=== PATIENT | female | born 1945 | race Caucasian/White ===

== ENCOUNTER → 2019-04-08 16:18 | Outpatient (CLI) | payer MEDICARE, SELFPAY ==
--- NOTE | 2019-04-08 16:25 | DI.RAD.S_ITS ---
PROCEDURE: XR LUMBAR SPINE MIN 4V INDICATIONS: Low back pain TECHNIQUE: 5 views of the lumbar spine were acquired. COMPARISON: None. FINDINGS: Bones: No fracture or focal osseous destruction. Multilevel degenerative endplate sclerosis and spurring. Diffuse facet arthropathy. Mild narrowing of the L4-L5 disc space. Grade 1 anterolisthesis of L4 on L5. Partially visualized levocurvature of the thoracolumbar junction. Soft tissues: Overlying bowel gas pattern is normal. No suspicious soft tissue calcifications. Oblique images: No pars defects. IMPRESSION: Mild L4-L5 disc degeneration. Diffuse facet arthropathy. Grade 1 anterolisthesis of L4 on L5 Thoracolumbar levocurvature. Dictated by: Farshad Conway M.D. on 04/08/2019 at 17:16 Approved by: Farshad Conway M.D. on 04/08/2019 at 17:17
== END ==
PROVIDERS: PCP Family Medicine; Visit Provider Family Medicine
DX: M54.5 Low back pain (principal); M47.27 Other spondylosis with radiculopathy, lumbosacral region; M51.16 Intervertebral disc disorders with radiculopathy, lumbar region; M43.16 Spondylolisthesis, lumbar region; M41.50 Other secondary scoliosis, site unspecified
CPT/HCPCS: 72110; 99213

== ENCOUNTER → 2019-04-19 11:23 | Outpatient (CLI) | payer MEDICARE, SELFPAY ==
--- NOTE | 2019-04-19 11:25 | DI.MRI.S_ITS ---
PROCEDURE: MR LUMBAR SPINE WO CON INDICATIONS: Low back pain TECHNIQUE: Noncontrast sagittal T1 spin echo and T2 fast echo, sagittal STIR, axial T1 and T2 fast spin echo through the lumbar spine. In cases with scoliosis, additional coronal T2 fast spin echo may be performed. COMPARISON: [facility], CR, XR LUMBAR SPINE MIN 4V, 04/08/2019, 16:28. FINDINGS: Image quality: Excellent. Alignment and Curvature: S-shaped scoliotic curvature is seen. Mild grade 1 anterolisthesis is seen at the L4-L5 level. Bone Marrow: Marrow is of normal overall signal. Scattered foci are seen, which are hyperintense on T1-weighted and T2-weighted imaging, which are most consistent with benign vertebral body hemangiomas. No acute vertebral body compression fractures. Spinal Cord: Conus medullaris terminates at the L1 level. Visualized cord demonstrates normal signal and size. Paraspinous Soft Tissues: No paravertebral masses. T12-L1: Mild loss of disc height is seen. Loss of disc signal is seen. No significant neural foraminal or central canal narrowing can be seen. L1-L2: No significant abnormality is seen. L2-L3: The disc height is well-preserved. Loss of disc signal is seen at this level. Minimal disc bulge is seen. There is minimal to mild left-sided and no right-sided neural foraminal narrowing seen. No central narrowing is seen. L3-L4: The disc height is well-preserved. Loss of disc signal is seen at this level. Moderate generalized disc bulge is seen. Mild facet joint hypertrophy is seen. There is mild right-sided and mild to moderate left-sided neural foraminal narrowing seen. [id number] central canal narrowing is seen. L4-L5: The disc height is well-preserved. Loss of disc signal is seen at this level. Mild to moderate disc bulge is seen, which is eccentric to the right. Moderate to prominent facet hypertrophy is seen. There is moderate bilateral neural foraminal narrowing seen, left worse than right. Moderate to severe central canal narrowing is seen, as on series 6 image 24. L5-S1: The disc height and disc signal are relatively well-preserved. No significant neural foraminal or central canal narrowing can be seen. 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 IMPRESSION: Lumbar spine degenerative changes are seen, which are most prominent at the L4-L5 level. Dictated by: Silas Ascencio M.D. on 04/19/2019 at 13:05 Approved by: Silas Ascencio M.D. on 04/19/2019 at 13:10
== END ==
PROVIDERS: PCP Family Medicine; Visit Provider Physical Medicine & Rehabilitation
DX: M54.5 Low back pain (principal); M47.26 Other spondylosis with radiculopathy, lumbar region
CPT/HCPCS: 72148

== ENCOUNTER 2019-05-16 10:41 | Outpatient (CLI) | payer MEDICARE, SELFPAY ==
--- NOTE | 2019-05-16 10:42 | DI.RAD.S_ITS ---
PROCEDURE: PAIN L/S FACET INJ/BLK 1ST PRASAD COMPARISON: None. INDICATIONS: SPONDYLOSIS FINDINGS: 6 intraoperative fluoroscopy images demonstrate needle placement at L3, L4 and L5 facet joints bilaterally. IMPRESSION: Fluoroscopy for pain management. Dictated by: Lacie Valentin M.D. on 05/16/2019 at 14:22 Approved by: Lacie Valentin M.D. on 05/16/2019 at 14:23
[2019-05-16 11:35] VITALS: BP 137/71; PULSE 63; RESP 16; TEMP 36.1; O2SAT 97
[2019-05-16 11:58] VITALS: BP 138/78; PULSE 93; RESP 16; O2SAT 97
[2019-05-16] MEDS: MIDAZOLAM 5 MG/5 ML VIAL IV (12:00)
[2019-05-16] MEDS: fentaNYL 100 MCG/2 ML INJ 50 MCG IV (12:00)
[2019-05-16] MEDS: IOPAMIDOL 15 ML VIAL 3 ML INJ (12:03)
[2019-05-16 12:05] VITALS: BP 116/68; PULSE 79; RESP 16; O2SAT 95
[2019-05-16] MEDS: BETAMETHASONE 30 MG/5 ML MDV 12 MG INJ (12:08)
[2019-05-16] MEDS: LIDOCAINE 1% 20 ML INJ 10 ML INJ (12:08)
[2019-05-16] MEDS: BUPIVACAINE 0.5% (PF) VIAL 2 ML INJ (12:08)
[2019-05-16 12:10] VITALS: BP 121/75; PULSE 76; RESP 16; O2SAT 96
--- NOTE | 2019-05-16 12:14 | PC.NURSE ---
Pt tolerated procedure well. Able to get pt off the table with standby assist. Transferred pt via wheelchair to pre procedure room. Resumed care upon arrival 1222 to pre procedure.
--- NOTE | 2019-05-16 12:21 | P.PCN_ITS ---
Procedures Date/Time Date of procedure: 05/16/19 Time of procedure: 12:20 General Procedure description: PREOP DIAGNOSIS 1. FACET ARTHROPATHY 2. AXIAL LBP 3. MULTILEVEL DDD POST OP DIAGNOSIS 1. FACET ARTHROPATHY 2. AXIAL LBP 3. MULTILEVEL DDD PROCEDURES 1. FLUORSCOPICALLY GUIDED CONTRAST CONTROLLED FACET JOINT INJECTIONS BILATERAL L3/4, L4/5 PHYSICIAN: Mason Padilla DO INDICATIONS: Bri is referred by Dr. Hurt for treatment of Axial LBP FINDINGS Multilevel Facet Arthropathy with Clinically significant axial LBP DESCRIPTION OF PROCEDURE Fluoroscopically guided, contrast-controlled bilateral L3/4, L4/5 facet joint injections. Following review of allergy and review of potential side effects and complications, including, but not necessarily limited to, infection, allergic reaction, local tissue breakdown, stroke, temporary or permanent nerve injury, paralysis, and possible , the patient indicated that the patient understood and agreed to proceed. An informed consent document was signed by the patient, witnessed by a nurse, and placed in the patient's chart. Additionally, other treatment options including medications, modalities, and physical therapy were reviewed with the patient. After review of previous anaesthesic history and IV conscious sedation the patient was deemed safe to proceed with todays procedure with IV conscious sedation as ASA class II designation. Safety time-out was performed to confirm patient ID, procedure to be performed and site of procedure. IV sedation was accomplished with a combination of 2mg of Versed and 50mcg of Fentanyl was administered by the RN after DO order, titrated to patient comfort during the course of the procedure while the patient remained responsive to all verbal commands. In the prone position, following sterile prep and drape of the lumbar region, the posterior aspect of the L3/4, L4/5 facet joints were identified fluoroscopically. The skin was anesthetized via a 25-gauge 1.5-inch needle with 1% lidocaine solution into the corresponding facet joints. At this point, a 22- gauge 3.5-inch spinal needle was atraumatically introduced and advanced under fluoroscopic guidance into the corresponding facet joints. Following negative a spiration, injections of approximately 0.2-cc of Isovue 200 confirmed interarticular placement without vascular uptake. The identical procedure was then performed at the L3/4, L4/5 facet joints on the left. Radiological data, including multiple fluoroscopic views of the lumbosacral spine, reveal a spinal needle at the L3/4, L4/5 facet joints bilaterally. Subsequent views show flow of contrast material both superiorly and inferiorly within the joint space without vascular or intrathecal uptake. At this point, a total of 0.5 cc including a mixture of 0.25 cc Marcaine and 0.25 cc betamethasone was injected without complication into each of the corresponding facet joints. The patient tolerated the procedure well without signs or symptoms of complications prior to transfer to the recovery area continued monitoring without incident. The patient was then transferred to the recovery area where they were observed for an appropriate period of time after the injection. The patient reported a VAS score of 7 prior to the procedure and a post-procedure VAS of 0. Total Fluoroscopy Time: 20.3 seconds Total Conscious Sedation Time: 24min POST OP INSTRUCTIONS The patient was provided a Pain Log to continue to record their response to the target-specific procedure prior to follow-up visit with their referring physician. Additionally, specific post-injection care instructions and a contact number to our office were provided if concerns arise regarding possible complications associated with the procedure are suspected. Mason Padilla DO Complications: none
[2019-05-16 12:22] VITALS: BP 140/79; PULSE 74; RESP 16; O2SAT 95
[2019-05-16 12:27] VITALS: BP 128/84; PULSE 74; RESP 16; O2SAT 96
== END 2019-05-16 12:56 | disposition home or self-care (01) ==
PROVIDERS: PCP Family Medicine; Visit Provider Physical Medicine & Rehabilitation
DX: M47.816 Spondylosis without myelopathy or radiculopathy, lumbar region (principal); M54.5 Low back pain; M51.36 Other intervertebral disc degeneration, lumbar region
CPT/HCPCS: 64493; 64494; 99152; J0702; J2250; J3010

== ENCOUNTER 2019-08-08 12:40 | Outpatient (CLI) | payer MEDICARE, SELFPAY ==
[2019-08-08] VITALS (10 sets, daily range): BP systolic 137–163; BP diastolic 64–96; PULSE 74–87; RESP 16–18; TEMP 36.1; O2SAT 94–100
--- NOTE | 2019-08-08 12:42 | DI.RAD.S_ITS ---
PROCEDURE: PAIN L/S FACET INJ/BLK 1ST PRASAD COMPARISON: None. INDICATIONS: SPONDYLOSIS FINDINGS: 6 intraoperative fluoroscopy images demonstrate needle placement at L3, L4 and L5 bilaterally. IMPRESSION: Fluoroscopy for pain management. Dictated by: Lacie Valentin M.D. on 08/08/2019 at 16:00 Approved by: Lacie Valentin M.D. on 08/08/2019 at 16:01
[2019-08-08] MEDS: fentaNYL 100 MCG/2 ML INJ 50 MCG IV (14:16)
[2019-08-08] MEDS: BETAMETHASONE 30 MG/5 ML MDV 12 MG INJ (14:23)
[2019-08-08] MEDS: IOPAMIDOL 15 ML VIAL 3 ML INJ (14:24)
[2019-08-08] MEDS: LIDOCAINE 1% 20 ML 10 ML INJ (14:24)
[2019-08-08] MEDS: BUPIVACAINE 0.5% (PF) VIAL 2 ML INJ (14:24)
[2019-08-08] MEDS: MIDAZOLAM 5 MG/5 ML VIAL IV (14:28)
--- NOTE | 2019-08-08 14:31 | PC.NURSE ---
ASSISTING PT OFF TABLE AND TRANSPORTING TO POST PROC AREA IN STABLE CONDITION. PT RN CARE PASSED ON TO SALVADOR Flores RN.
--- NOTE | 2019-08-08 14:36 | P.PCN_ITS ---
Procedures Date/Time Date of procedure: 08/08/19 Time of procedure: 14:36 General Procedure description: POST OP DIAGNOSIS 1. FACET ARTHROPATHY PROCEDURES 1. BILATERAL L3, L4 AND L5 MB BLOCKS PHYSICIAN: DO DONA Martin is referred by Dr. Hurt for treatment of Bilateral Axial LBP. DESCRIPTION OF PROCEDURE Fluoroscopically guided, contrast-controlled bilateral L3, L4 and L5 medial branch blocks with 0.5cc of 0.5% Marcaine. Following review of allergy and review of potential side effects and complications, including, but not necessarily limited to, infection, allergic reaction, local tissue breakdown, nerve injury, paralysis, stroke and possible , the patient indicated that the patient understood and agreed to proceed. An informed consent document was signed by the patient, witnessed by a nurse, and placed in the patient's chart. After review of previous anaesthesic history and IV conscious sedation the patient was deemed safe to proceed with todays procedure with IV conscious sedation as ASA class II designation. Safety time-out was performed to confirm patient ID, procedure to be performed and site of procedure. IV sedation was accomplished with a combination of 4mg of Versed and 50mcg of Fentantyl was administered by the RN after DO order, titrated to patient comfort during the course of the procedure while the patient remained responsive to all verbal commands In the prone position, following sterile prep and drape of the lumbar region, the right L3, L4 and L5 anatomical location of the medial branch of the dorsal ramus was identified fluoroscopically. Subsequently an anesthetic skin wheal using 1% lidocaine solution was initiated at each of the anatomical spots. Subsequently then a 22-gauge 3.5-inch spinal needle was atraumatically introduced and advanced under fluoroscopic guidance at each of the corresponding sites at the right L3, L4 and L5 MB. After negative aspiration, 0.2 cc of Isovue 200 was injected, confirming placement without vascular or intrathecal uptake. Subsequently then 0.5 cc of 0.5% Marcaine solution was injected at each of the corresponding sites at the right L3, L4 and L5 medial branch locations. The identical procedure was replicated on the left. The patient tolerated the procedure well without signs or symptoms of complications. The patient tolerated the procedure well without signs or symptoms of complications prior to transfer to the recovery area continued monitoring without incident. Post-procedure, the patient was monitored initiating provocative activities to measure the amount of relief from block of the facetogenic pain. The patient reported a VAS of 7 prior to the procedure and a post-procedure VAS of 1. It has been a pleasure to assist in the diagnostic and therapeutic care of your patient. Total Fluoroscopy Time: 24.8 seconds Total Conscious Sedation Time: 24min POST OP INSTRUCTIONS The patient was provided with a Pain Log to complete over the next several hours and subsequent days prior to the patient's follow up with the ordering physician. If the patient has x ray electronics wireman relief to the solution applied, then they may be a candidate for medial branch rhizotomy. The patient is aware, was provided, once again, with a Pain Log and will follow up with the referring physician for review and clinical correlation Mason Padilla DO Complications: none
--- NOTE | 2019-08-08 16:57 | PC.NURSE ---
Late entry DI discharge note: Patient arrived via wheelchair awake and able to transfer to recliner from / with 1 stand by assist. VSS and O2 sats WNL. No complaints of pain 0/10 pain level on arrival and discharge. tolerating po without nausea. IV discontinued. discharge to home with daughter. Ambulated to car. Gait steady. Kady Dumont RN
== END 2019-08-08 15:05 ==
PROVIDERS: PCP Family Medicine; Visit Provider Physical Medicine & Rehabilitation
DX: M47.816 Spondylosis without myelopathy or radiculopathy, lumbar region (principal)
CPT/HCPCS: 64493; 64494; 99152; J0702; J2250; J3010

== ENCOUNTER 2019-10-22 11:08 | Outpatient (CLI) | payer MEDICARE, SELFPAY ==
[2019-10-22] VITALS (10 sets, daily range): BP systolic 118–155; BP diastolic 67–90; PULSE 75–87; RESP 16–18; TEMP 36.1; O2SAT 94–99
--- NOTE | 2019-10-22 11:11 | DI.RAD.S_ITS ---
PROCEDURE: PAIN L/S MED/LAT N RFA BILAT INDICATIONS: SPONDYLOSIS FINDINGS: Fluoroscopic spot filming was performed to verify placement of spinal needles at the L3, L4 and L5 level(s), as labeled on the films. Appropriate location(s) of the needle tip(s) was confirmed by injection of iodinated contrast. IMPRESSION: Fluoroscopy for pain management. Dictated by: Lacie Valentin M.D. on 10/22/2019 at 13:38 Approved by: Lacie Valentin M.D. on 10/22/2019 at 13:38
[2019-10-22] MEDS: fentaNYL 100 MCG/2 ML INJ 50 MCG IV (12:20)
[2019-10-22] MEDS: MIDAZOLAM 5 MG/5 ML VIAL IV (12:20)
[2019-10-22] MEDS: BUPIVACAINE 0.5% (PF) VIAL 2 ML INJ (12:32)
[2019-10-22] MEDS: LIDOCAINE 1% 20 ML 10 ML INJ (12:32)
--- NOTE | 2019-10-22 12:54 | PC.NURSE ---
ASSISTING PT OFF TABLE AND TRANSPORTING TO POST PROC AREA IN STABLE CONDITION. PASSING RN CARE OF PT OFF TO SALVADOR Flores RN.
--- NOTE | 2019-10-22 12:59 | P.PCN_ITS ---
Procedures Date/Time Date of procedure: 10/22/19 Time of procedure: 12:59 General Procedure description: PREOP DIAGNOSIS 1. RECALCITRANT FACET ARTHROPATHY, POST OP DIAGNOSIS 1. RECALCITRANT FACET ARTHROPATHY PROCEDURES 1. BILATERAL L3, L4 AND L5 MEDIAL BRANCH RADIOFREQUENCY NEUROTOMY PHYSICIAN: Mason Padilla DO INDICATIONS: Bri is referred by Dr. Hurt for treatment of facet arthropathy. DESCRIPTION OF PROCEDURE Bilateral L3, L4 and L5 medial branch radiofrequency neurotomy The patient is well known to this clinic having undergone previous facet injections with good but temporary relief. The patient has experienced appropriate, concordant relief with previous facet and median branch blocks but the patient's pain has been recalcitrant to further conservative measures. Therefore, based upon the patient's relief and persistent symptoms, the patient is considered an appropriate candidate for facet rhizotomy. All of the patient's questions regarding the risks versus benefits of the procedure, including, but not limited to, bleeding, infection, temporary as well as lasting nerve injury, paralysis, stroke, and , as well treatment alternatives were answered to satisfaction. After obtaining informed consent, denial of pertinent drug allergies, as well as being made aware of the potential risks of bleeding, infection, spinal cord trauma, paralysis, temporary and permanent nerve damage, seizure, stroke, and possible , the patient was brought to the fluoroscopy suite and positioned prone on the fluoroscopy table. The lumbar region was prepped with Betadine and covered with a fenestrated drape in the usual sterile fashion. Appropriate monitors applied including pulse oximeter, pulse, and blood pressure for regular monitoring throughout the procedure. After review of previous anaesthesic history and IV conscious sedation the patient was deemed safe to proceed with todays procedure with IV conscious sedation as ASA class II designation. Safety time-out was performed to confirm p atient ID, procedure to be performed and site of procedure. IV sedation was accomplished with a combination of 4mg of Versed and 50mcg of Fentanyl administered by the RN after DO order, titrated to patient comfort during the course of the procedure while the patient remained responsive to all verbal commands. After local infiltration using 1% lidocaine, under fluoroscopic guidance, a 10- cm RF insulated needle with a 10-mm active tip was positioned parallel to the junction of the right the superior articulating process where the L5 medial branch resides. Needle placement was confirmed with sensory stimulation at 50 Hz, with motor stimulation of .5v on the right which produced local stimulation without radicular component. The stimulation was then increased to 1.5v with, once again, only local multifidus stimulation without radicular component. This was then followed by two discreet lesions performed at 80 degrees Celsius for 90 seconds each. The needle was then removed and the identical procedure was performed along the length of the right L4 medial branch with motor stimulation at .7v on the right. The identical procedure was once again performed along the length of the right L3 and medial branch with motor stimulation of .5v on the right. The identical procedures were repeated on the left. The patient tolerated the procedure well without signs or symptoms of complic ations prior to transfer to the recovery area continued monitoring without incident. The patient was then transferred to the recovery area where they were observed for an appropriate period of time after the injection. The patient reported a VAS score of 9 prior to the procedure and a post-procedure VAS of 0. Total Fluoroscopy Time: 32.7 seconds Total Conscious Sedation Time: 38min POST OP INSTRUCTIONS The patient was provided a Pain Log to continue to record the patient's response to the target-specific procedure prior to the patient's follow-up visit with the referring physician. Additionally, specific post-injection care instructions and a contact number to our office were provided if concerns arise regarding possible complications associated with the procedure are suspected. Mason Padilla DO Complications: none
--- NOTE | 2019-10-22 17:16 | PC.NURSE ---
VERSED AND FENTANYL PREPARED AND ADMINISTERED BY THIS RN. ALL OTHER MEDS PREPARED AND ADMINISTERED BY DR. JUAREZ.
== END 2019-10-22 13:15 | disposition home or self-care (01) ==
PROVIDERS: PCP Family Medicine; Visit Provider Physical Medicine & Rehabilitation
DX: M47.816 Spondylosis without myelopathy or radiculopathy, lumbar region (principal)
CPT/HCPCS: 64635; 64636; 99152; 99153; J2250; J3010

== ENCOUNTER → 2019-12-27 18:02 | Outpatient (CLI) | payer MEDICARE, SELFPAY ==
--- NOTE | 2019-12-27 18:06 | DI.MRI.S_ITS ---
PROCEDURE: MR STROKE INDICATIONS: DIZZINESS TECHNIQUE: Brain: Noncontrast axial T1 spin echo, axial T2 fast spin echo, sagittal and axial FLAIR, coronal T2 fast spin echo, axial gradient echo, axial diffusion and ADC through the brain. MR angiogram: Noncontrast axial 3D [id number] MR angiogram, with maximum intensity projection reformats of the internal carotid arteries and posterior circulation then performed. COMPARISON: None. FINDINGS: Image quality: Diagnostic. BRAIN: CSF Spaces: Basal cisterns are patent. No extra-axial fluid collections. Ventricles are normal in size and shape. Brain: No midline shift. No intracranial bleeds or mass effects. The brainstem appears normal. Hickey/white matter interface appears normal. Scattered areas of increased flair signal are identified within the periventricular and deep white matter of the supratentorial brain. Many of these areas of increased flair signal are noted to radiate perpendicular to the lateral ventricles. There is a more ovoid/globular region of increased flair signal evident involving the inferior margin of the posterior right frontal lobe near the junction with the parietal lobe (image 16, series 19), which correlates with an area of diffusion restriction and decreased signal on the ADC images compatible with an acute area of ischemia. No additional areas of abnormal diffusion signal are identified within the brain. These areas of abnormal white matter change are not definitively identified involving the brainstem, temporal lobes, or cerebellum. No definite involvement of the corpus callosum is appreciated. Normal intravascular flow voids are present. No suspicious enhancement is evident involving these lesions within the deep white matter on the postcontrast images. Skull and face: Calvarium has normal marrow signal. Orbits appear normal. Sinuses: Mild mucosal thickening is evident involving the right sphenoid air cells and the ethmoid air cells. No air-fluid levels are identified. Otherwise, the imaged paranasal sinuses and the mastoid air cells are clear. BRAIN MR ANGIOGRAM: Anterior circulation: Intracranial internal carotid arteries demonstrate normal size and intraluminal flow signal. The flow within the paired anterior cerebral arteries is normal and symmetric. The flow within the middle cerebral arteries is normal and symmetric. The anterior communicating artery is seen. No stenoses, occlusions, or aneurysms. Posterior circulation: The visualized vertebral arteries demonstrate normal caliber, and join to form a normal appearing basilar artery. The flow within the posterior cerebral arteries is normal and symmetric. Note is made of normal appearing posterior cerebral arteries. No stenoses, occlusions, or aneurysms. CAROTID ANGIOGRAM: Image portions of the aortic arch are within normal limits. Arch vessels are also within normal limits without focal atherosclerotic narrowing identified. The origins of the bilateral carotid arteries are patent and unremarkable without significant narrowing. There is tortuosity involving both common carotid arteries and the bilateral internal carotid arteries. No atherosclerotic changes are appreciated. No luminal irregularity is evident. There is no aneurysm or high-grade narrowing. The bilateral vertebral artery origins demonstrates mild tortuosity along the proximal aspect of these vessels without focal narrowing evident. Otherwise, both vertebral arteries are within normal limits and converge to form a normal basilar artery. IMPRESSION: 1. Small area of acute ischemia involving the inferior right frontal lobe without hemorrhagic conversion. 2. No acute intracranial hemorrhage. 3. Extensive white matter changes probably are related to chronic small vessel ischemic changes. However, their orientation (perpendicular to the lateral ventricles) does raise suspicion for a potential superimposed demyelinating process, such as multiple sclerosis and clinical correlation is recommended. 4. The intracranial arteries are widely patent without evidence of aneurysm, high-grade narrowing, or occlusion. 5. The vertebral and carotid arteries within the neck are unremarkable with the exception of mild tortuosity. There is no high-grade narrowing, occlusion, or aneurysm. 6. Mild paranasal sinus disease. Dictated by: Jarek Grey M.D. on 12/28/2019 at 10:17 Approved by: Jarek Grey M.D. on 12/28/2019 at 10:26
== END ==
PROVIDERS: PCP Family Medicine; Referring Provider Family Medicine; Visit Provider Nurse Practitioner Family
DX: R42 Dizziness and giddiness (principal); J32.8 Other chronic sinusitis
CPT/HCPCS: 70548; 70553

== ENCOUNTER → 2020-05-04 10:40 | Outpatient (CLI) | payer MEDICARE, SELFPAY ==
[2020-05-05 08:38] LABS: COVID19 Sendout Not Detected (Not Detect)
== END ==
PROVIDERS: PCP Family Medicine; Visit Provider Physician Assistant
DX: Z01.812 Encounter for preprocedural laboratory examination (principal)
CPT/HCPCS: 87635

== ENCOUNTER 2020-05-07 12:28 | Outpatient (CLI) | payer MEDICARE, SELFPAY ==
[2020-05-07] VITALS (9 sets, daily range): BP systolic 120–156; BP diastolic 62–101; PULSE 55–84; RESP 12–16; TEMP 36.1; O2SAT 95–99
--- NOTE | 2020-05-07 12:30 | DI.RAD.S_ITS ---
PROCEDURE: PAIN L/S FACET INJ/BLK 1ST PRASAD COMPARISON: [facility], , PAIN L/S FACET INJ/BLK 1ST PRASAD, 08/08/2019, 14:17. INDICATIONS: SPONDYLOSIS FINDINGS: Fluoroscopic spot filming was performed to verify placement of spinal needles at the L5 and S1 level(s), as labeled on the films. Appropriate location(s) of the needle tip(s) was confirmed by injection of iodinated contrast. Dictated by: Farshad Conway M.D. on 05/07/2020 at 14:59 Approved by: Farshad Conway M.D. on 05/07/2020 at 15:06
--- NOTE | 2020-05-07 13:05 | PC.NURSE ---
pt admitted to pre proc room. LS CTA, HRR, VSS
[2020-05-07] MEDS: fentaNYL 100 MCG/2 ML INJ 50 MCG IV (13:21)
[2020-05-07] MEDS: MIDAZOLAM 5 MG/5 ML VIAL IV (13:21)
[2020-05-07] MEDS: BUPIVACAINE 0.5% (PF) VIAL 5 ML INJ (13:27)
[2020-05-07] MEDS: LIDOCAINE 1% 20 ML 10 ML INJ (13:28)
[2020-05-07] MEDS: IOPAMIDOL 15 ML VIAL 3 ML INJ (13:28)
--- NOTE | 2020-05-07 13:37 | P.PCN_ITS ---
Procedures Date/Time Date of procedure: 05/07/20 Time of procedure: 13:37 General Procedure description: POST OP DIAGNOSIS 1. FACET ARTHROPATHY PROCEDURES 1. BILATERAL- L5 and S1 MB BLOCKS PHYSICIAN: DO DONA Martin Bri is referred by for treatment of Bilateral Axial LBP. DESCRIPTION OF PROCEDURE Fluoroscopically guided, contrast-controlled bilateral L5 and S1 medial branch blocks with 0.5cc of 0.5% Marcaine. Following review of allergy and review of potential side effects and complications, including, but not necessarily limited to, infection, allergic reaction, local tissue breakdown, nerve injury, paralysis, stroke and possible , the patient indicated that the patient understood and agreed to proceed. An informed consent document was signed by the patient, witnessed by a nurse, a nd placed in the patient's chart. After review of previous anaesthesic history and IV conscious sedation the patient was deemed safe to proceed with todays procedure with IV conscious sedation as ASA class II designation. Safety time-out was performed to confirm patient ID, procedure to be performed and site of procedure. IV sedation was accomplished with a combination of 2mg of Versed and 50mcg of Fentanyl was administered by the RN after DO order, titrated to patient comfort during the course of the procedure while the patient remained responsive to all verbal commands In the prone position, following sterile prep and drape of the lumbar region, the right L5 and S1 anatomical location of the medial branch of the dorsal ramus was identified fluoroscopically. Subsequently an anesthetic skin wheal using 1% lidocaine solution was initiated at each of the anatomical spots. Subsequently then a 22-gauge 3.5-inch spinal needle was atraumatically introduced and advanced under fluoroscopic guidance at each of the corresponding sites at the right L5 and S1 MB. After negative aspiration, 0.2 cc of Isovue 200 was injected, confirming placement without vascular or intrathecal uptake. Scott bsequently then 0.5 cc of 0.5% Marcaine solution was injected at each of the corresponding sites at the right L5 and S1 medial branch locations. The identical procedure was replicated on the left. The patient tolerated the procedure well without signs or symptoms of complications. The patient tolerated the procedure well without signs or symptoms of complications prior to transfer to the recovery area continued monitoring without incident. Post-procedure, the patient was monitored initiating provocative activities to measure the amount of relief from block of the facetogenic pain. The patient reported a VAS of 7 prior to the procedure and a post-procedure VAS of 1. It has been a pleasure to assist in the diagnostic and therapeutic care of your patient. Total Fluoroscopy Time: 8 seconds Total Conscious Sedation Time: 24min POST OP INSTRUCTIONS The patient was provided with a Pain Log to complete over the next several hours and subsequent days prior to the patient's follow up with the ordering physician. If the patient has trial paralegal relief to the solution applied, then they may be a candidate for medial branch rhizotomy. The patient is aware, was provided, once again, with a Pain Log and will follow up with the referring physician for review and clinical correlation Mason Padilla DO Complications: none
--- NOTE | 2020-05-07 13:47 | PC.NURSE ---
Pt arrived to pre proc room via . Stable transfer from to chair, monitoring resume by this RN
--- NOTE | 2020-05-07 14:49 | PC.NURSE ---
pt was returned to pre proc room via , 2 PA for transfer from wc to chair. resumed monitoring by this RN. Pt held until 1450 due to instability .
== END 2020-05-07 14:52 | disposition home or self-care (01) ==
LOC: RAD 12:30
PROVIDERS: PCP Family Medicine; Referring Provider Physical Medicine & Rehabilitation; Visit Provider Physical Medicine & Rehabilitation
DX: M47.817 Spondylosis without myelopathy or radiculopathy, lumbosacral region (principal); M54.5 Low back pain
CPT/HCPCS: 64493; 99152; J2250; J3010

== ENCOUNTER → 2020-08-31 12:11 | Outpatient (CLI) | payer MEDICARE, SELFPAY ==
--- NOTE | 2020-08-31 12:13 | DI.RAD.S_ITS ---
PROCEDURE: XR LUMBAR SPINE MIN 4V COMPARISON: [facility], , XR LUMBAR SPINE MIN 4V, 04/08/2019, 16:28. INDICATIONS: Other spondylosis with radiculopathy, lumbosacral region FINDINGS: PA, lateral, bilateral oblique, and coned-down views of the lumbar spine were performed. There is slight S-shaped curvature of the thoracolumbar spine. Vertebral body heights are maintained. There is facet arthropathy and grade 1 anterolisthesis of L4-5. The sacroiliac joints are normal. IMPRESSION: 1. Facet arthropathy at L4-5 with grade 1 anterolisthesis. 2. Mild S-shaped curvature of the lumbar spine. Dictated by: Srinivasa Gomez M.D. on 08/31/2020 at 13:40 Approved by: Srinivasa Gomez M.D. on 08/31/2020 at 13:43
== END ==
PROVIDERS: PCP Family Medicine; Referring Provider Physical Medicine & Rehabilitation; Visit Provider Physical Medicine & Rehabilitation
DX: M47.27 Other spondylosis with radiculopathy, lumbosacral region (principal); M47.26 Other spondylosis with radiculopathy, lumbar region; M43.16 Spondylolisthesis, lumbar region; M41.50 Other secondary scoliosis, site unspecified
CPT/HCPCS: 72110; 99214